=== PATIENT | female | born 1995 | race Caucasian/White ===

== ENCOUNTER 2020-05-23 05:13 | Emergency (ER) | payer BC ==
[~2020-05-23] VITALS: Ht 160 cm; Wt 52.2 kg
[2020-05-23] MEDS ORDERED: MAPAP500 MG PO (05:29)
[2020-05-23 06:12] LABS: URINE CLARITY SL HAZY; URINE COLOR YELLOW; URINE PROTEIN (DIPSTICK) TRACE (Negative)
[2020-05-23 06:13] LABS: URINE BILIRUBIN NEGATIVE (Negative); URINE BLOOD 2+ (Negative); URINE GLUCOSE-RANDOM* NEGATIVE (Negative); URINE KETONES TRACE (Negative); URINE LEUKOCYTES-REFLEX 1+ (Negative); URINE NITRITE-REFLEX NEGATIVE (Negative); URINE UROBILINOGEN 0.2 E.U./dl (0.2-1.0)
[2020-05-23 06:19] LABS: SQUAMOUS >10 Many /LPF (0-3)
[2020-05-23 06:20] LABS: CASTS None Seen /LPF (None Seen); CRYSTALS None Seen /LPF (None Seen); URINE RBC 0-2 Rare /HPF (0-2)
[2020-05-23 06:21] LABS: ABSOLUTE NEUTROPHILS 8.7 thou/uL (1.4-8.2); BASOPHILS 0.2 % (0.0-2.0); HEMATOCRIT 38.5 % (37.0-47.0); HEMOGLOBIN 13.1 gm/dL (12.0-15.0); LYMPHOCYTES 3.8 % (24.0-44.0); MCH 30.3 pg (26.0-34.0); MCHC 33.9 g/dL (28.0-37.0); MCV 89.4 fL (80.0-100.0); MONOCYTES 10.6 % (1.0-8.0); PLATELET COUNT 197 thou/uL (150-400); POLYS 85.4 % (36.0-66.0); RBC 4.31 mil/uL (4.20-5.00); RDW 12.4 % (10.5-14.5); WBC 10.2 thou/uL (4.0-11.0)
[2020-05-23 06:21] LABS: WBC CLUMPS Occasional (None Seen)
[2020-05-23 06:26] LABS: AMP/METHAMP Negative (Negative); BARBITURATES Negative (Negative); BENZODIAZEPINES Negative (Negative); COCAINE Negative (Negative); METHADONE Negative (Negative); OPIATES Negative (Negative); PCP Negative (Negative)
[2020-05-23 06:32] LABS: CALCIUM 8.6 mg/dL (8.5-10.1); POTASSIUM 3.4 mmol/L (3.5-5.1)
[2020-05-23 06:38] LABS: ALBUMIN 3.4 g/dL (3.4-5.0); TOTAL BILIRUBIN 1.1 mg/dL (0.2-1.0); TOTAL PROTEIN 7.3 g/dL (6.4-8.2)
[2020-05-23] MEDS ORDERED: KEFLEX500 M1 PO (09:16)
[2020-05-23 09:51] VITALS: BP 97/58
== END 2020-05-23 09:34 | disposition home or self-care (01) ==
LOC: ER 05:13
PROVIDERS: Emergency Medicine
DX: N12 Tubulo-interstitial nephritis, not specified as acute or chronic (principal); R11.2 Nausea with vomiting, unspecified; Z88.8 Allergy status to other drugs, medicaments and biological substances; Z20.828 Contact with and (suspected) exposure to other viral communicable diseases